=== PATIENT | female | born 1995 | race Caucasian/White ===

== ENCOUNTER 2016-12-20 00:18 | Emergency (ER) | payer BC ==
[~2016-12-20] VITALS: Ht 175.3 cm; Wt 115.6 kg
[~2016-12-20 00:18] MED LIST: CRYSELLE1 EACH PO; MOTRIN800 MG PO; VICODIN 5-3001 EACH PO
[2016-12-20 00:50] LABS: HEMATOCRIT 41.4 % (36.0-46.0); MCH 27.7 PG (29.0-34.0); MCHC 32.9 G/DL (30.0-36.0); MCV 84.3 FL (83-99); MEAN PLAT.VOLUME 8.7 uM^3 (9.5-12.4); PLATELET COUNT 406 K/uL (156-360); RBC DIS.WIDTH-CV 12.4 % (11.8-14.6); RBC DIS.WIDTH-SD 38.1 % (39-53); RED BLOOD COUNT 4.91 M/uL (3.80-5.20); WHITE BLOOD COUNT 11.2 K/uL (4.1-10.2)
[2016-12-20 00:59] LABS: CHLORIDE 105 mEq/L (99-109); POTASSIUM 3.8 mEq/L (3.7-5.4); SODIUM 140 mEq/L (136-147)
[2016-12-20 01:00] LABS: GLUCOSE 87 mg/dL (70-99)
[2016-12-20 01:02] LABS: ANION GAP 11 MEQ/L (2-14); D-DIMER ELISA 0.36 mg/L FEU (< 0.57)
[2016-12-20 01:04] LABS: GFR ESTIMATE (CALCULATED) > 59 mL/min/
[2016-12-20 01:05] LABS: UREA NITROGEN (BUN) 12 mg/dL (9-23)
[2016-12-20 01:12] LABS: QUANTITATIVE HCG < 4.0 MIU/ML
[2016-12-20 02:30] LABS: ADD MIUA? YES; BILIRUBIN NEGATIVE; BLOOD NEGATIVE; COLOR YELLOW ((YELLOW)); GLUCOSE (STRIP) NEGATIVE; KETONES NEGATIVE; LEUKOCYTES SMALL; NITRITE NEGATIVE; PROTEIN (STRIP) NEGATIVE; SPECIFIC GRAVITY 1.012 (1.000-1.030); UROBILINOGEN 0.2 MG/DL (0.2-1.0)
[2016-12-20 02:35] LABS: BACTERIA RARE /HPF; EPITHELIAL CELLS RARE /HPF; MUCUS TRACE /LPF; RED BLOOD CELLS 0-5 /HPF (0-5); WHITE BLOOD CELLS 0-5 /HPF (0-5)
[2016-12-20 02:39] LABS: AMPHETAMINE NEGATIVE (500 ng/mL); BARBITURATES NEGATIVE (200 ng/mL); BENZODIAZEPINES NEGATIVE (150 ng/mL); COCAINE NEGATIVE (150 ng/mL); INTERNAL CONTROLS VALID? YES; METHADONE NEGATIVE (200 ng/mL); METHAMPHETAMINE NEGATIVE (500 ng/mL); OPIATES (MORPHINE) NEGATIVE (100 ng/mL); OXYCODONE NEGATIVE (100 ng/mL); PHENCYCLIDINE NEGATIVE (25 ng/mL); PROPOXYPHENE NEGATIVE (300 ng/mL); THC CANNABINOIDS NEGATIVE (50 ng/mL); TRICYCLIC ANTIDEPRESSANTS NEGATIVE (300 ng/mL)
[2016-12-20] MEDS ORDERED: ZOFRAN ODT4 MG PO (03:03)
[2016-12-20] MEDS ORDERED: ZANTAC300 MG PO (03:03)
[2016-12-20 03:17] VITALS: BP 118/91
== END 2016-12-20 03:18 | disposition home or self-care (01) ==
LOC: EXP 00:18 → EME 00:18 → EXP 03:18
PROVIDERS: Physician Assistant
DX: K21.9 Gastro-esophageal reflux disease without esophagitis (principal); R07.89 Other chest pain; Z88.0 Allergy status to penicillin
CPT/HCPCS: 71010; 80048; 81003; 84702; 85027; 85379; 93005; 99281; 99284